=== PATIENT | male | born 1990 | race Caucasian/White ===

== ENCOUNTER 2022-10-06 17:19 | Emergency (ER) | payer OTHER, SELFPAY ==
--- NOTE | ~2022-10-06 | XR_ITS ---
XR knee LT 3V 10/06/2022 18:00 Indication: Left knee laceration Procedure: 3 views left knee Comparison: No prior studies for comparison. Findings: There is a laceration of the anterior soft tissues adjacent to the knee joint. There is sof t tissue gas lateral to the knee. No foreign body identified. No acute underlying fracture. No signif icant joint effusion. Impression: 1: Large laceration anterior to the knee with extensive subcutaneous gas laterally. Reviewed, dictated and finalized at location A. Impression: 1: Large laceration anterior to the knee with extensive subcutaneous gas latera lly.
[2022-10-06 17:24] VITALS: BP 125/70; PULSE 96; RESP 18; TEMP 36.6; O2SAT 99
--- NOTE | 2022-10-06 17:35 | PC.NURSE ---
Pt triaged by SANDRA Ferrara
--- NOTE | 2022-10-06 17:44 | ED.LOWEXIN ---
HPI - Extremity Injury (Lower) General Chief Complaint: Extremity Injury, Lower <RAÚL Mitchell Last Filed: 10/06/22 19:49> Stated Complaint: Cut L knee open <RAÚL Mitchell Last Filed: 10/06/22 19:49> Time Seen by Provider: 10/06/22 17:36 <RAÚL Mitchell Last Filed: 10/06/22 19:49> History of Present Illness HPI Narrative: Patient is a 31-year-old male here for evaluation of a laceration to his left knee sustained earlier today. Patient states that he was jumping over a fence when part of the fence cut up his left knee. He has a large laceration to the knee, bleeding controlled prior to arrival. He is unsure of his last tetanus shot. There were no falls in the accident. No head injury. No numbness, tingling, difficulty moving the foot or the knee. <RAÚL Mitchell Last Filed: 10/06/22 19:49> Related Data Allergies/Adverse Reactions: Allergies Allergy/AdvReac Type Severity Reaction Status Date / Time No Known Allergies Allergy Verified 10/06/22 18:02 <RAÚL Mitchell Last Filed: 10/06/22 19:49> Review of Systems Review of Systems: Gen: Denies fevers or chills Eyes: Denies eye pain or visual change ENT: Denies congestion Respiratory: Denies shortness of breath or cough CV: Denies chest pain or palpitations GI: Denies abdominal pain nausea, emesis or diarrhea : denies burning, urgency, frequency or hematuria Musculoskeletal: Reports left knee pain Neuro: Denies numbness, tingling, weakness or focal weakness Skin: Reports laceration to left knee Except as documented, all other systems reviewed and negative <RAÚL Mitchell Last Filed: 10/06/22 19:49> Exam Narrative: APPEARANCE: Well appearing, no pain in distress, well-nourished. Head: Normocephalic and atraumatic. EYES: PERRLA/EOMI, conjunctivae clear NOSE: No nasal drainage EARS: External ear normal in appearance THROAT: Oropharynx is clear. Mucous membranes are moist. NECK: Supple. No adenopathy, no masses. RESPIRATORY: Airway patent, respirations nonlabored. Clear to auscultation bilaterally, no rales, rhonchi, wheezing. CARDIOVASCULAR: 2+ DP and PT pulses bilaterally. Regular rate and rhythm without murmurs, rubs, or gallops. ABDOMINAL: Normoactive bowel sounds. Soft, nontender, nondistended. No rebound tenderness or guarding. MUSCULOSKELETAL: Patient has some crepitus palpated in the left patella with range of motion. There is bony tenderness to palpation of the patella. He has full range of motion in the limb, no paresthesias. NEURO: Normal speech. No focal neurologic deficits. SKIN: There is a 4 x 2 cm irregular laceration to the lateral aspect of the left knee with subcutaneous fat visible, no exposed bone, there are several tendons visible around the patella but they do not appear lacerated. PSYCHIATRIC: Normal affect/mood. <Siobhan Ellsworth PA-C - Last Filed: 10/06/22 19:49> Course [employer]/PA Physician Supervision For this patient encounter, I reviewed the REGIST[employer] or PA documentation, treatment plan, and I was responsible for the medical decision making; and I had [id number] time with this patient. <Avtar Heard MD - Last Filed: 10/06/22 22:08> Vital Signs Vital signs: Vital Signs Temperature 98 F 10/06/22 17:24 Pulse Rate 96 10/06/22 17:24 Respiratory Rate 18 10/06/22 17:24 Blood Pressure 125/70 10/06/22 17:24 Pulse Oximetry 99 10/06/22 17:24 Oxygen Delivery Room Air 10/06/22 17:24 Temperature 98 F 10/06/22 17:24 Pulse Rate 96 10/06/22 17:24 Respiratory Rate 18 10/06/22 17:24 Blood Pressure 125/70 10/06/22 17:24 Pulse Oximetry 99 10/06/22 17:24 Oxygen Delivery Room Air 10/06/22 17:24 <Siobhan Ellsworth PA-C - Last Filed: 10/06/22 19:49> Vital Signs Temperature 98 F 04/20/23 17:24 Pulse Rate 96 10/06/22 17:24 Respiratory Rate 18 10/06/22 17:24 Blood Pre
[2022-10-06] MEDS: CEPHALEXIN 500 MG CAPSULE PO (18:02)
[2022-10-06] MEDS: IBUPROFEN 600 MG TABLET PO (18:02)
[2022-10-06] MEDS: HYDROcodone/acetaminophen (*CRX) 5-325 MG TABLET 1 TAB PO (18:03)
[2022-10-06] MEDS: TETANUS,DIPHTHERIA,AC PERTUSSIS ADULT (0.5 ML) BOOSTRIX IM (18:15)
[2022-10-06] MEDS: POVIDONE-IODINE 10% SOLUTION 118 ML BOTTLE TOPICAL (18:25)
[2022-10-06] MEDS: LIDO 1%/EPINEPHRINE 1:100,000 20 ML VIAL 5 ML INFILTRATE (18:25)
== END 2022-10-06 20:20 | disposition home or self-care (01) ==
PROVIDERS: Emergency Provider Physician Assistant
DX: S81.012A Laceration without foreign body, left knee, initial encounter (principal); Z23 Encounter for immunization; W22.8XXA Striking against or struck by other objects, initial encounter
CPT/HCPCS: 12004; 12034; 73562; 90471; 90715; 99283; A9270; J7030

== ENCOUNTER 2022-10-22 14:18 | Emergency (ER) | payer OTHER, SELFPAY ==
[2022-10-22 14:24] VITALS: BP 123/79; PULSE 90; RESP 17; TEMP 37; O2SAT 99
--- NOTE | 2022-10-22 14:37 | ED.GENADULT ---
HPI - General Adult General Chief complaint: Unspecified Stated complaint: stitches removed Time Seen by Provider: 10/22/22 14:26 History of Present Illness HPI narrative: 31-year-old male presented to the emergency department for wound check and suture removal. Patient had a laceration to his left knee on 10/06. Patient reports that the laceration has minimal healing well. Patient denies any complaints. Patient had been antibiotics and antibiotics were completed. Related Data Allergies Allergy/AdvReac Type Severity Reaction Status Date / Time No Known Allergies Allergy Verified 10/06/22 18:02 Review of Systems Review of Systems: All systems reviewed & are unremarkable except as noted in HPI and below Exam Narrative: APPEARANCE: Well appearing, no pain, no distress, well-nourished. HEAD: normocephalic, atraumatic. EYES: PERRLA/EOMI, conjunctivae clear. NOSE: Normal no drainage MUSCULOSKELETAL: Moves all extremities. Strength/ROM intact, No edema, No calf tenderness. NEURO: Alert. Cranial nerves II through XII intact. Good gait. Good coordination SKIN: Well-appearing and well-healing wound with no localized erythema PSYCHIATRIC: Normal affect/mood. Course Course Emergency Course: Sutures were removed without issue. Wound is well-appearing. Patient was educated on additional wound care and on reasons to return to the emergency department or to have follow-up with her primary care physician. All question concerns were addressed Vital Signs Vital signs: Vital Signs Temperature 98.6 F 10/22/22 14:24 Pulse Rate 90 10/22/22 14:24 Respiratory Rate 17 10/22/22 14:24 Blood Pressure 123/79 10/22/22 14:24 Pulse Oximetry 99 10/22/22 14:24 Oxygen Delivery Room Air 10/22/22 14:24 Temperature 98.6 F 10/22/22 14:24 Pulse Rate 90 10/22/22 14:24 Respiratory Rate 17 10/22/22 14:24 Blood Pressure 123/79 10/22/22 14:24 Pulse Oximetry 99 10/22/22 14:24 Oxygen Delivery Room Air 10/22/22 14:24 Medical Decision Making Vital Signs Vital Signs: Vital Signs Temperature 98.6 F 10/22/22 14:24 Pulse Rate 90 10/22/22 14:24 Respiratory Rate 17 10/22/22 14:24 Blood Pressure 123/79 10/22/22 14:24 Pulse Oximetry 99 10/22/22 14:24 Oxygen Delivery Room Air 10/22/22 14:24 Temperature 98.6 F 10/22/22 14:24 Pulse Rate 90 10/22/22 14:24 Respiratory Rate 17 10/22/22 14:24 Blood Pressure 123/79 10/22/22 14:24 Pulse Oximetry 99 10/22/22 14:24 Oxygen Delivery Room Air 10/22/22 14:24 Discharge Plan Discharge Clinical Impression: Suture check Patient Disposition: Home, Self-Care Condition: Stable Instructions: Antibiotic Form, Laceration (DC) Additional Instructions: Have close follow-up with your primary care physician. If you have any worsening symptoms then please call or return to the emergency department. Prescriptions: No Action cephalexin 500 mg capsule 500 mg PO Q6H 7 Days Qty: 28 0RF Follow-up/Referrals: PHYSICIAN,CLICKER OPERATOR [Non-Staff] -
== END 2022-10-22 14:50 | disposition home or self-care (01) ==
PROVIDERS: Emergency Provider Emergency Medicine
DX: S81.012D Laceration without foreign body, left knee, subsequent encounter (principal); X58.XXXD Exposure to other specified factors, subsequent encounter
CPT/HCPCS: 15853; 99281

== ENCOUNTER 2023-07-28 22:55 | Emergency (ER) | payer SELFPAY ==
--- NOTE | ~2023-07-28 | XR_ITS ---
EXAMINATION: XR chest 2V DATE: 07/28/2023 23:26 INDICATION: Chest pain. Palpitations. TECHNIQUE: Frontal and lateral views of the chest were obtained. COMPARISON: None. FINDINGS: There is no pneumonia, pleural effusion, or pneumothorax. The heart size is normal. IMPRESSION: 1. No acute cardiopulmonary disease. Reviewed, dictated and finalized at location E. BRUSHER
--- NOTE | 2023-07-28 23:03 | ECG_ITS ---
Measurements Intervals [place] Rate: 85 P: 67 [place]: 159 QRS: 73 QRSD: 95 T: 55 QT: 343 QTc: 408 Interpretive Statements SINUS RHYTHM NORMAL ECG NO PREVIOUS ECG AVAILABLE FOR COMPARISON Electronically Signed On 07-29-2023 8:04:01 RN RENAL by Adalid Hoff M.D.
[2023-07-28 23:11] VITALS: BP 155/78; PULSE 92; RESP 15; TEMP 36.4; O2SAT 100
[2023-07-28 23:46] LABS: Basophils Percent Auto 0.4 % (0.2-1.2); Eosinophils Absolute Auto 0.2 K/mm3 (0-0.3); Eosinophils Percent Auto 2.3 % (0-4.4); Hematocrit 41.4 % (42.0-52.0); Hemoglobin 13.7 g/dL (14.0-18.0); Immature Granulocyte Absolute 0.02 K/mm3 (0.00-0.031); Immature Granulocyte Percent A 0.3 % (0-0.5); Lymphocytes Absolute Auto 3.13 K/mm3 (0.9-3.2); Lymphocytes Percent Auto 40.3 % (18.3-44.2); Mean Corpuscular HGB Conc 33.1 g/dl (32-36); Mean Corpuscular Hemoglobin 30.5 pg (26-34); Mean Corpuscular Volume 92.2 fl (80-100); Mean Platelet Volume 9.6 fl (7.4-10.4); Monocytes Absolute Auto 0.6 K/mm3 (0.1-0.6); Monocytes Percent Auto 8.2 % (2.6-8.5); Neutrophils Absolute Auto 3.8 K/mm3 (1.3-6.7); Neutrophils Percent Auto 48.5 % (45.5-73.1); Platelet Count Result 166 k/mm3 (150-375); Red Blood Count 4.49 M/mm3 (4.6-6.20); Red Cell Distribution Width 12.4 % (11.5-14.5); White Blood Count 7.8 K/mm3 (4.5-10.0)
[2023-07-29 00:02] LABS: Partial Thromboplastin Time 24.7 SECONDS (22.3-36.8); Prothrombin Time 13.3 Seconds (11.1-14.7)
[2023-07-29 00:05] LABS: Alanine Aminotransferase 38 U/L (6-50); Albumin Level 4.1 g/dL (3.5-5.1); Alkaline Phosphatase 68 U/L (38-126); Anion Gap 8 mmol/L (8-16); Aspartate Amino Transferase 34 U/L (17-59); Bilirubin,Total 0.5 mg/dL (0.2-1.3); Blood Urea Nitrogen 18 mg/dL (9-20); Calcium 8.6 mg/dL (8.4-10.2); Carbon Dioxide 23 mmol/L (22-30); Chloride 101 mmol/L (98-107); Estimated CRCL calculation 101 ml/min; Estimated Glomerular Filt Rate > 60; Glucose 164 mg/dL (65-110); Lipase 63 U/L (23-300); Potassium 3.4 mmol/L (3.4-5.0); Sodium 132 mmol/L (137-145)
[2023-07-29 00:16] LABS: Troponin I < 0.012 ng/mL (0.000-0.034)
--- NOTE | 2023-07-29 02:46 | PC.NURSE ---
Patient came to intake desk and stated he was feeling better and would like to leave. [facility] to review orders that were completed and instructed to find and follow up with a PCP for further evaluation and treatment, or return if symptoms come back or worsen. Patient verbalizes understanding.
== END 2023-07-29 02:51 | disposition left against medical advice (07) ==
LOC: ANHED 07-29 02:50
PROVIDERS: Emergency Provider Emergency Medicine
DX: R00.0 Tachycardia, unspecified (principal)
CPT/HCPCS: 36415; 71046; 80053; 83690; 84484; 85025; 85610; 85730; 93005; 99199